=== PATIENT | male | born 1975 | race Two or more races ===

== ENCOUNTER 2016-09-06 17:47 | Emergency (ER) | payer SELFPAY ==
[~2016-09-06] VITALS: Ht 172.7 cm; Wt 79.4 kg
[2016-09-06 18:08] VITALS: BP 126/93
[2016-09-06] MEDS ORDERED: CLINDAMYCIN HCL 150 MG CAPSULE PO ONE (18:17)
[2016-09-06] MEDS: CLINDAMYCIN HCL 150 MG CAPSULE PO ONE (18:22)
== END 2016-09-06 18:23 | disposition home or self-care (01) ==
LOC: ER 17:48
DX: L03.116 Cellulitis of left lower limb (principal); L03.115 Cellulitis of right lower limb; F17.200 Nicotine dependence, unspecified, uncomplicated; F15.10 Other stimulant abuse, uncomplicated
CPT/HCPCS: 99283; A4606; Z7610

== ENCOUNTER 2017-10-14 00:34 | Emergency (ER) | payer SELFPAY ==
[~2017-10-14] VITALS: Ht 172.7 cm; Wt 81.6 kg
[2017-10-14 00:40] VITALS: BP 142/89
[2017-10-14] MEDS ORDERED: CEPHALEXIN MONOHYDRATE 500 MG CAPSULE PO ONE ×3 (01:00→01:16)
[2017-10-14] MEDS ORDERED: HYDROCODONE/APAP 5/325MG 1 EACH TABLET PO ONE (01:00)
[2017-10-14] MEDS ORDERED: IBUPROFEN 600 MG TABLET PO ONE ×3 (01:00→01:16)
[2017-10-14] MEDS ORDERED: SULFAMETH/TRIMETH 800/160 MG 1 UDTAB TABLET PO ONE ×3 (01:00→01:16)
[2017-10-14] MEDS ORDERED: HYDROCODONE/APAP 5/325MG 1 EACH TABLET ONE ×2 (01:11→01:15)
== END 2017-10-14 01:26 | disposition home or self-care (01) ==
LOC: ER 00:37
DX: L03.115 Cellulitis of right lower limb (principal); F10.10 Alcohol abuse, uncomplicated; F17.200 Nicotine dependence, unspecified, uncomplicated; Y90.9 Presence of alcohol in blood, level not specified
CPT/HCPCS: A4606; Z7610